=== PATIENT | female | born 1990 | race Caucasian/White ===

== ENCOUNTER 2018-03-29 23:33 | Inpatient (IN) | payer OTHER ==
[~2018-03-29] VITALS: Ht 165.1 cm; Wt 77.1 kg
[~2018-03-29 23:33] MED LIST: ACET325; CETI10; DEPO; FLUO10; GABA300; GABA400; HYDACE5 PO; HYDR1TAB94 PO; IBUP600; IBUP600 PO; IBUP800 PO; LORA1; LORA1 PO; MECL12.5; MECL25 PO; MEDR150I IM; MULVITMINE PO; ONDA4 PO; ONDA4ODT MM; OXYACE5T PO; OXYACE7.5T PO; OXYC5; PROM25; PROM25 PO; QUET25; RANI150; SENNP; [UNRECOGNIZED DRUG - MIXTURE]
[2018-03-30 01:11] LABS: BASOPHILS ABSOLUTE AUTO 0.03 K/mm3 (0.00-0.23); BASOPHILS PERCENT AUTO 0 % (0-2); EOSINOPHILS ABSOLUTE AUTO 0.06 K/mm3 (0.00-0.68); EOSINOPHILS PERCENT AUTO 1 % (0-6); Hematocrit 36.8 % (33.0-51.0); Hemoglobin 12.1 g/dL (11.5-16.0); IMMATURE GRAN ABSOLUTE AUTO 0.05 K/mm3 (0.00-0.10); IMMATURE GRAN PERCENT AUTO 1 % (0-1); LYMPHOCYTES ABSOLUTE AUTO 2.49 K/mm3 (0.84-5.20); LYMPHOCYTES PERCENT AUTO 30 % (21-46); MONOCYTES ABSOLUTE AUTO 0.74 K/mm3 (0.16-1.47); MONOCYTES PERCENT AUTO 9 % (4-13); Mean Corpuscular HGB 30.9 pg (26.0-34.0); Mean Corpuscular HGB Conc 32.9 g/dL (31.5-36.5); Mean Corpuscular Volume 94 fL (80-100); Mean Platelet Volume 12.2 fL (9.1-12.4); NEUTROPHILS ABSOLUTE AUTO 5.05 K/mm3 (1.96-9.15); NEUTROPHILS PERCENT AUTO 60 % (41-73); Platelet Count 141 K/mm3 (150-400); Red Blood Cell Count 3.91 M/mm3 (3.80-5.20); White Blood Cell Count 8.42 K/mm3 (4.00-11.30)
[2018-03-31 06:59] LABS: BASOPHILS ABSOLUTE AUTO 0.02 K/mm3 (0.00-0.23); BASOPHILS PERCENT AUTO 0 % (0-2); EOSINOPHILS ABSOLUTE AUTO 0.19 K/mm3 (0.00-0.68); EOSINOPHILS PERCENT AUTO 2 % (0-6); Hematocrit 29.3 % (33.0-51.0); Hemoglobin 9.5 g/dL (11.5-16.0); IMMATURE GRAN ABSOLUTE AUTO 0.08 K/mm3 (0.00-0.10); IMMATURE GRAN PERCENT AUTO 1 % (0-1); LYMPHOCYTES ABSOLUTE AUTO 2.56 K/mm3 (0.84-5.20); LYMPHOCYTES PERCENT AUTO 26 % (21-46); MONOCYTES ABSOLUTE AUTO 0.75 K/mm3 (0.16-1.47); MONOCYTES PERCENT AUTO 8 % (4-13); Mean Corpuscular HGB Conc 32.4 g/dL (31.5-36.5); Mean Corpuscular Volume 96 fL (80-100); Mean Platelet Volume 11.7 fL (9.1-12.4); NEUTROPHILS PERCENT AUTO 63 % (41-73); Platelet Count 109 K/mm3 (150-400); RDW Coefficient Variation 13.2 % (11.7-14.2); RDW Standard Deviation 45.6 fL (35.1-46.3); Red Blood Cell Count 3.06 M/mm3 (3.80-5.20)
[2018-03-31] MEDS ORDERED: IBUP800 PO (08:11)
[2018-03-31] MEDS ORDERED: Percocet 5-3251 EACH PO (08:12)
[2018-03-31] MEDS ORDERED: Verotin-Gr Cap1 EACH PO (08:12)
== END 2018-03-31 14:45 | disposition home or self-care (01) | DRG 775 ==
LOC: OBS 23:33 → BC 23:34 → OBS 03-30 00:46 → BC 03-30 00:49
PROVIDERS: Nurse Practitioner Obstetrics & Gynecology
PROC: 10E0XZZ Delivery of Products of Conception, External Approach (ICD-10-PCS; principal; 2018-03-30)
PROC: 3E0R3BZ Introduction of Anesthetic Agent into Spinal Canal, Percutaneous Approach (ICD-10-PCS; 2018-03-30)
DX: O80 Encounter for full-term uncomplicated delivery (principal); Z3A.39 39 weeks gestation of pregnancy; Z37.0 Single live birth; Z88.0 Allergy status to penicillin; Z91.011 Allergy to milk products
CPT/HCPCS: 36415; 59025; 85025; J1885; J2210; J2590; J3010; J7120

== ENCOUNTER 2018-05-28 09:18 | Day surgery (SDC) | payer OTHER ==
[~2018-05-28] VITALS: Ht 165.1 cm; Wt 64.1 kg
[~2018-05-28 09:18] MED LIST changes: +Percocet 5-3251 EACH PO; +Verotin-Gr Cap1 EACH PO
== END 2018-05-28 12:57 | disposition home or self-care (01) ==
LOC: ORSCSDS 09:18
PROVIDERS: Obstetrics & Gynecology
PROC: 0UT74ZZ Resection of Bilateral Fallopian Tubes, Percutaneous Endoscopic Approach (ICD-10-PCS; principal; 2018-05-28 10:30)
DX: Z30.2 Encounter for sterilization (principal); N83.8 Other noninflammatory disorders of ovary, fallopian tube and broad ligament; N80.3 Endometriosis of pelvic peritoneum; K66.0 Peritoneal adhesions (postprocedural) (postinfection)
CPT/HCPCS: 88302; J0690; J1100; J1885; J2250; J2405; J2710; J3010; J7120

== ENCOUNTER 2018-06-05 13:49 | Emergency (ER) | payer OTHER ==
[~2018-06-05] VITALS: Ht 165.1 cm; Wt 63.5 kg
[2018-06-05 15:20] LABS: BASOPHILS ABSOLUTE AUTO 0.04 K/mm3 (0.00-0.23); BASOPHILS PERCENT AUTO 0 % (0-2); EOSINOPHILS ABSOLUTE AUTO 0.32 K/mm3 (0.00-0.68); EOSINOPHILS PERCENT AUTO 3 % (0-6); Hematocrit 42.3 % (33.0-51.0); Hemoglobin 14.1 g/dL (11.5-16.0); IMMATURE GRAN ABSOLUTE AUTO 0.02 K/mm3 (0.00-0.10); IMMATURE GRAN PERCENT AUTO 0 % (0-1); LYMPHOCYTES ABSOLUTE AUTO 1.69 K/mm3 (0.84-5.20); LYMPHOCYTES PERCENT AUTO 18 % (21-46); MONOCYTES ABSOLUTE AUTO 0.54 K/mm3 (0.16-1.47); MONOCYTES PERCENT AUTO 6 % (4-13); Mean Corpuscular HGB 30.8 pg (26.0-34.0); Mean Corpuscular HGB Conc 33.3 g/dL (31.5-36.5); Mean Corpuscular Volume 92 fL (80-100); Mean Platelet Volume 11.4 fL (9.1-12.4); NEUTROPHILS PERCENT AUTO 72 % (41-73); Platelet Count 220 K/mm3 (150-400); RDW Coefficient Variation 12.8 % (11.7-14.2); RDW Standard Deviation 43.2 fL (35.1-46.3); Red Blood Cell Count 4.58 M/mm3 (3.80-5.20); White Blood Cell Count 9.31 K/mm3 (4.00-11.30)
[2018-06-05 15:29] LABS: Alanine Aminotransfer (ALT/SGP 31 U/L (12-78); Albumin, Blood 4.4 g/dL (3.4-5.0); Albumin/Globulin Ratio 1.2 (0.8-1.8); Alk Phos 88 U/L (50-136); Anion Gap 7 mmol/L (6-16); Aspartate Aminotrans (AST/SGOT 21 U/L (12-37); Bilirubin, Total 0.8 mg/dL (0.1-1.0); Blood Urea Nitrogen 19 mg/dL (8-24); Bun/Creatinine Ratio 23.6 (12.0-20.0); CO2, Blood 28 mmol/L (21-32); Calcium, Blood 9.3 mg/dL (8.5-10.1); Chloride, Blood 108 mmol/L (98-108); Creatinine, Blood 0.81 mg/dL (0.40-1.00); Globulin, Blood 3.7 g/dL (2.2-4.0); Glomerular Filtration Rate >60 (60-); Glucose, Blood 83 mg/dL (70-99); Potassium, Blood 3.7 mmol/L (3.5-5.5); Sodium, Blood 143 mmol/L (136-145); Total Protein, Blood 8.1 g/dL (6.4-8.2)
[2018-06-05] MEDS ORDERED: Kristalose20 GM PO (16:41)
== END 2018-06-05 17:26 | disposition home or self-care (01) ==
LOC: ER 13:49
PROVIDERS: Nurse Practitioner Family
DX: K59.00 Constipation, unspecified (principal); N99.842 Postprocedural seroma of a genitourinary system organ or structure following a genitourinary system procedure
CPT/HCPCS: 36415; 74018; 74176; 80053; 85025; 96374; 96375; 96376; 99284-25; J2405; J3010

== ENCOUNTER 2018-06-14 00:07 | Inpatient (IN) | payer OTHER ==
[~2018-06-14] VITALS: Ht 165.1 cm; Wt 63.5 kg
[~2018-06-14 00:07] MED LIST changes: +Kristalose20 GM PO
[2018-06-14] MEDS ORDERED: SENN187 PO (00:56)
[2018-06-14 01:40] LABS: BASOPHILS ABSOLUTE AUTO 0.06 K/mm3 (0.00-0.23); BASOPHILS PERCENT AUTO 1 % (0-2); EOSINOPHILS ABSOLUTE AUTO 0.28 K/mm3 (0.00-0.68); EOSINOPHILS PERCENT AUTO 3 % (0-6); Hematocrit 42.1 % (33.0-51.0); Hemoglobin 14.1 g/dL (11.5-16.0); IMMATURE GRAN ABSOLUTE AUTO 0.02 K/mm3 (0.00-0.10); IMMATURE GRAN PERCENT AUTO 0 % (0-1); LYMPHOCYTES ABSOLUTE AUTO 1.63 K/mm3 (0.84-5.20); LYMPHOCYTES PERCENT AUTO 15 % (21-46); MONOCYTES ABSOLUTE AUTO 0.74 K/mm3 (0.16-1.47); MONOCYTES PERCENT AUTO 7 % (4-13); Mean Corpuscular HGB 30.3 pg (26.0-34.0); Mean Corpuscular HGB Conc 33.5 g/dL (31.5-36.5); Mean Corpuscular Volume 91 fL (80-100); NEUTROPHILS ABSOLUTE AUTO 8.28 K/mm3 (1.96-9.15); NEUTROPHILS PERCENT AUTO 75 % (41-73); Platelet Count 232 K/mm3 (150-400); RDW Coefficient Variation 12.9 % (11.7-14.2); RDW Standard Deviation 41.9 fL (35.1-46.3); Red Blood Cell Count 4.65 M/mm3 (3.80-5.20); White Blood Cell Count 11.01 K/mm3 (4.00-11.30)
[2018-06-14 02:01] LABS: Alanine Aminotransfer (ALT/SGP 32 U/L (12-78); Albumin, Blood 4.4 g/dL (3.4-5.0); Albumin/Globulin Ratio 1.3 (0.8-1.8); Alk Phos 90 U/L (50-136); Anion Gap 9 mmol/L (6-16); Aspartate Aminotrans (AST/SGOT 21 U/L (12-37); Bilirubin, Total 0.7 mg/dL (0.1-1.0); Blood Urea Nitrogen 15 mg/dL (8-24); Bun/Creatinine Ratio 20.5 (12.0-20.0); CO2, Blood 28 mmol/L (21-32); Calcium, Blood 9.4 mg/dL (8.5-10.1); Chloride, Blood 107 mmol/L (98-108); Creatinine, Blood 0.73 mg/dL (0.40-1.00); Globulin, Blood 3.3 g/dL (2.2-4.0); Glomerular Filtration Rate >60 (60-); Glucose, Blood 88 mg/dL (70-99); Potassium, Blood 3.3 mmol/L (3.5-5.5); Sodium, Blood 144 mmol/L (136-145); Total Protein, Blood 7.7 g/dL (6.4-8.2)
[2018-06-14 02:46] LABS: Source, Urine Clean Catch
[2018-06-14 02:48] LABS: Bilirubin, Urine Neg (Neg); Blood, Urine 1+ (Neg); Glucose Qualitative, Urine Neg (Neg); Ketones, Urine 3+ (Neg); Leukocyte Esterase, Urine Neg (Neg); Nitrite, Urine Neg (Neg); Protein, Urine 1+ (Neg); Specific Gravity, Urine 1.015 (1.003-1.022); Urobilinogen, Urine NORM (Normal)
[2018-06-14 02:50] LABS: Appearance, Urine Clear (Clear); Color, Urine Yellow (P-Yellow)
[2018-06-14 02:53] LABS: Red Blood Cells, Urine 0-2 /hpf (0-2); Squamous Epithelial Cells Few /hpf (Few)
[2018-06-14 02:54] LABS: Bacteria Mod /hpf
[2018-06-15 05:41] LABS: BASOPHILS ABSOLUTE AUTO 0.02 K/mm3 (0.00-0.23); BASOPHILS PERCENT AUTO 0 % (0-2); EOSINOPHILS ABSOLUTE AUTO 0.01 K/mm3 (0.00-0.68); EOSINOPHILS PERCENT AUTO 0 % (0-6); Hematocrit 37.9 % (33.0-51.0); Hemoglobin 12.3 g/dL (11.5-16.0); IMMATURE GRAN ABSOLUTE AUTO 0.02 K/mm3 (0.00-0.10); IMMATURE GRAN PERCENT AUTO 0 % (0-1); LYMPHOCYTES ABSOLUTE AUTO 1.49 K/mm3 (0.84-5.20); LYMPHOCYTES PERCENT AUTO 17 % (21-46); MONOCYTES ABSOLUTE AUTO 1.12 K/mm3 (0.16-1.47); MONOCYTES PERCENT AUTO 13 % (4-13); Mean Corpuscular HGB 29.4 pg (26.0-34.0); Mean Corpuscular HGB Conc 32.5 g/dL (31.5-36.5); Mean Corpuscular Volume 91 fL (80-100); Mean Platelet Volume 11.4 fL (9.1-12.4); NEUTROPHILS ABSOLUTE AUTO 5.96 K/mm3 (1.96-9.15); NEUTROPHILS PERCENT AUTO 69 % (41-73); Platelet Count 229 K/mm3 (150-400); RDW Coefficient Variation 13.1 % (11.7-14.2); RDW Standard Deviation 42.7 fL (35.1-46.3); Red Blood Cell Count 4.19 M/mm3 (3.80-5.20); White Blood Cell Count 8.62 K/mm3 (4.00-11.30)
[2018-06-15 05:53] LABS: Anion Gap 9 mmol/L (6-16); Blood Urea Nitrogen 9 mg/dL (8-24); Bun/Creatinine Ratio 13.1 (12.0-20.0); CO2, Blood 25 mmol/L (21-32); Calcium, Blood 8.7 mg/dL (8.5-10.1); Chloride, Blood 107 mmol/L (98-108); Creatinine, Blood 0.69 mg/dL (0.40-1.00); Glomerular Filtration Rate >60 (60-); Glucose, Blood 102 mg/dL (70-99); Sodium, Blood 141 mmol/L (136-145)
[2018-06-19 05:08] LABS: BASOPHILS ABSOLUTE AUTO 0.02 K/mm3 (0.00-0.23); BASOPHILS PERCENT AUTO 0 % (0-2); EOSINOPHILS ABSOLUTE AUTO 0.32 K/mm3 (0.00-0.68); EOSINOPHILS PERCENT AUTO 4 % (0-6); Hematocrit 29.8 % (33.0-51.0); IMMATURE GRAN ABSOLUTE AUTO 0.03 K/mm3 (0.00-0.10); IMMATURE GRAN PERCENT AUTO 0 % (0-1); LYMPHOCYTES ABSOLUTE AUTO 1.13 K/mm3 (0.84-5.20); LYMPHOCYTES PERCENT AUTO 13 % (21-46); MONOCYTES ABSOLUTE AUTO 0.89 K/mm3 (0.16-1.47); MONOCYTES PERCENT AUTO 10 % (4-13); Mean Corpuscular HGB 30.9 pg (26.0-34.0); Mean Corpuscular HGB Conc 33.6 g/dL (31.5-36.5); Mean Corpuscular Volume 92 fL (80-100); Mean Platelet Volume 10.5 fL (9.1-12.4); NEUTROPHILS ABSOLUTE AUTO 6.14 K/mm3 (1.96-9.15); NEUTROPHILS PERCENT AUTO 72 % (41-73); Platelet Count 193 K/mm3 (150-400); RDW Coefficient Variation 12.6 % (11.7-14.2); RDW Standard Deviation 42.7 fL (35.1-46.3); Red Blood Cell Count 3.24 M/mm3 (3.80-5.20); White Blood Cell Count 8.53 K/mm3 (4.00-11.30)
[2018-06-19 05:24] LABS: Anion Gap 5 mmol/L (6-16); Blood Urea Nitrogen 5 mg/dL (8-24); Bun/Creatinine Ratio 8.4 (12.0-20.0); CO2, Blood 27 mmol/L (21-32); Calcium, Blood 8.5 mg/dL (8.5-10.1); Chloride, Blood 110 mmol/L (98-108); Creatinine, Blood 0.59 mg/dL (0.40-1.00); Glomerular Filtration Rate >60 (60-); Glucose, Blood 96 mg/dL (70-99); Magnesium, Blood 1.7 mg/dL (1.6-2.4); Phosphorus, Blood 3.5 mg/dL (2.5-4.9); Potassium, Blood 3.7 mmol/L (3.5-5.5); Sodium, Blood 142 mmol/L (136-145)
[2018-06-22] MEDS ORDERED: OXYC5 PO (10:40)
== END 2018-06-22 13:03 | disposition home or self-care (01) | DRG 331 ==
LOC: ER 00:07 → SURS 03:58 → ERHOLD 03:58 → MEDS 03:58 → SURS 18:50
PROVIDERS: Emergency Medicine; Surgery
PROC: 0DN80ZZ Release Small Intestine, Open Approach (ICD-10-PCS; 2018-06-14)
PROC: 0DT80ZZ Resection of Small Intestine, Open Approach (ICD-10-PCS; principal; 2018-06-14 14:00)
DX: K56.51 Intestinal adhesions [bands], with partial obstruction (principal); K21.9 Gastro-esophageal reflux disease without esophagitis; E87.6 Hypokalemia
CPT/HCPCS: 36415; 51702; 74177; 74250; 80048; 80053; 81001; 83690; 83735; 84100; 85025; 87086; 88307; 88342; 96374; 96375; 96376; 99285-25; C1751; J1100; J1170; J1885; J2250; J2405; J2765; J3010; J7030; J7120; Q0163; Q9967

== ENCOUNTER 2022-01-26 08:31 | Day surgery (SDC) | payer OTHER ==
[~2022-01-26] VITALS: Ht 165.1 cm; Wt 64.6 kg
[~2022-01-26 08:31] MED LIST changes: +OXYC5 PO; +SENN187 PO
[2022-01-26] MEDS ORDERED: PROG100 (08:55)
[2022-01-26] MEDS ORDERED: ALDACTONE100 MG PO (08:55)
--- NOTE | 2022-01-26 08:57 | NUR ---
Ambulatory in Day Surgery History, Chart, Medications and Allergies reviewed before start of procedure. Lungs clear T/O to Auscultation. Patient confirms NPO status and agrees with scheduled surgery. Pre-Op teaching done. Pt verbalizes understanding. Patient States Post-Procedure ride home has been arranged.
== END 2022-01-26 23:15 | disposition home or self-care (01) ==
LOC: ORSCMMR 08:31 → ORD 10:00 → ORSCMMR 10:00 → ORD 02-10 07:30
PROVIDERS: Obstetrics & Gynecology
PROC: 0DNW4ZZ Release Peritoneum, Percutaneous Endoscopic Approach (ICD-10-PCS; principal; 2022-01-26 10:00)
PROC: 0TBB4ZZ Excision of Bladder, Percutaneous Endoscopic Approach (ICD-10-PCS; principal; 2022-01-26 10:00)
PROC: 8E0W4CZ Robotic Assisted Procedure of Trunk Region, Percutaneous Endoscopic Approach (ICD-10-PCS; principal; 2022-01-26 10:00)
DX: N83.202 Unspecified ovarian cyst, left side (principal); N83.201 Unspecified ovarian cyst, right side; R10.2 Pelvic and perineal pain; K66.0 Peritoneal adhesions (postprocedural) (postinfection); N80.3 Endometriosis of pelvic peritoneum; Z79.899 Other long term (current) drug therapy
CPT/HCPCS: 58662; 49329; S2900; 88305; A9270; J0690; J1100; J1885; J2270; J2405; J2704; J2710; J3010; J7120

== ENCOUNTER 2022-11-03 09:45 | Day surgery (SDC) | payer OTHER ==
[2022-10-31 17:33] LABS: BASOPHILS ABSOLUTE AUTO 0.06 K/mm3 (0.00-0.23); BASOPHILS PERCENT AUTO 1 % (0-2); EOSINOPHILS ABSOLUTE AUTO 0.34 K/mm3 (0.00-0.68); EOSINOPHILS PERCENT AUTO 5 % (0-6); Hematocrit 41.9 % (33.0-51.0); Hemoglobin 14.4 g/dL (11.5-16.0); IMMATURE GRAN ABSOLUTE AUTO 0.02 K/mm3 (0.00-0.10); IMMATURE GRAN PERCENT AUTO 0 % (0-1); LYMPHOCYTES ABSOLUTE AUTO 2.27 K/mm3 (0.84-5.20); LYMPHOCYTES PERCENT AUTO 30 % (21-46); MONOCYTES ABSOLUTE AUTO 0.58 K/mm3 (0.16-1.47); MONOCYTES PERCENT AUTO 8 % (4-13); Mean Corpuscular HGB 32.5 pg (26.0-34.0); Mean Corpuscular HGB Conc 34.4 g/dL (31.5-36.5); Mean Corpuscular Volume 95 fL (80-100); Mean Platelet Volume 11.8 fL (9.1-12.4); NEUTROPHILS ABSOLUTE AUTO 4.31 K/mm3 (1.96-9.15); NEUTROPHILS PERCENT AUTO 57 % (41-73); Platelet Count 230 K/mm3 (150-400); RDW Coefficient Variation 11.7 % (11.7-14.2); RDW Standard Deviation 40.5 fL (35.1-46.3); Red Blood Cell Count 4.43 M/mm3 (3.80-5.20); White Blood Cell Count 7.58 K/mm3 (4.00-11.30)
[~2022-11-03] VITALS: Ht 165.1 cm; Wt 63.5 kg
[~2022-11-03 09:45] MED LIST changes: +ALDACTONE100 MG PO; +PROG100
--- NOTE | 2022-11-03 10:32 | NUR ---
Ambulatory in Day Surgery. History, Chart, Medications and Allergies reviewed before start of procedure.Lungs clear T/O to Auscultation. Patient confirms NPO status and agrees with scheduled surgery. Pre-Op teaching done. Pt verbalizes understanding.
[2022-11-03] MEDS ORDERED: PROP10 PO (10:35)
[2022-11-03] MEDS ORDERED: LORA.5 PO (10:36)
[2022-11-03] MEDS ORDERED: VILAZODONE HCL20 MG PO (10:36)
--- NOTE | 2022-11-03 18:34 | NUR ---
1750 TO ROOM FROM PACU ACCOMPANIED BY FAMILY. LAP SITES X4 CLEAN, DRY AND INTACT. KAREY PAD IN PLACE WITHOUT DRAINAGE. PT REPORTS CRAMPING ABD PAIN. PT REPORTS PREVIOUS INJURY TO RIGHT ARM WHICH CAUSES DECREASED SENSATION, FINGERS CONTRACTED TO RIGHT HAND WHICH PT STATES IS HER NORMAL
--- NOTE | 2022-11-03 18:36 | NUR ---
PT REPORTS PAIN IS CURRENTLY 6/10 WHICH IS ACCEPTABLE TO HER. PT DENIES NAUSEA, NO DRAINAGE ON KAREY PAD. ABD INCISIONS WITHOUT DRAINAGE
--- NOTE | 2022-11-04 03:47 | NUR ---
PABLO RASHEED CALL PLACED TO DR BALLESTEROS FOR THIS PT DUE TO THE PATIENT REPORTING PAIN BEING UNCONTROLLED WITH PRN MEDICATION. INSTRUCTED TO GIVE 500 ML BOLUS, I PLAN TO USE BAG OF LR THAT IS HANGING, AND 6.25 MG OF PHENERGEN. PATIENT INFORMED OF THIS PLAN AND IS AGREEABLE.
--- NOTE | 2022-11-04 04:16 | NUR ---
POD1 FOR A LAP HYSTER. X4 LAP SITES ARE C/D/I. PT DENIES BLEEDING T/O THE NIGHT. BONE REMAINS IN PLACE. VSS, BP NOTED TO BE SOFT, SEE PREVIOUS NOTE FOR FLUID BOLUS. PAIN HAS BEEN DIFFICULT TO CONTROL T/O THE NIGHT, MEDICATING WITH PRN'S REGULARLY AND UTILIZING WARM BLANKETS T/O THE NIGHT. PT REPOSITIONING SELF FOR COMFORT. SEE PREVIOUS NOTE FOR PAIN MANAGEMENT FROM DR BALLESTEROS. PT WAS NAUSEOUS AT THE BEGINNING OF SHIFT, MEDICATED FOR THIS. SINCE THEN, PT HAS HAD NO NAUSEA AND HAS TOLLERATED PO INTAKE WELL. PT AMBULATED TO THE BATHROOM A SBA D/T IV POLE. PLAN FOR PT TO D/C HOME TODAY WITH FAMILY. THE PATIENT IS CURRENTLY TRYING TO FALL ASLEEP, CALL LIGHT IN REACH.
[2022-11-04 04:58] LABS: BASOPHILS ABSOLUTE AUTO 0.01 K/mm3 (0.00-0.23); BASOPHILS PERCENT AUTO 0 % (0-2); EOSINOPHILS ABSOLUTE AUTO 0.01 K/mm3 (0.00-0.68); EOSINOPHILS PERCENT AUTO 0 % (0-6); Hemoglobin 11.9 g/dL (11.5-16.0); IMMATURE GRAN ABSOLUTE AUTO 0.04 K/mm3 (0.00-0.10); IMMATURE GRAN PERCENT AUTO 0 % (0-1); LYMPHOCYTES ABSOLUTE AUTO 1.66 K/mm3 (0.84-5.20); LYMPHOCYTES PERCENT AUTO 15 % (21-46); MONOCYTES ABSOLUTE AUTO 1.06 K/mm3 (0.16-1.47); MONOCYTES PERCENT AUTO 10 % (4-13); Mean Corpuscular HGB 32.7 pg (26.0-34.0); Mean Corpuscular Volume 96 fL (80-100); Mean Platelet Volume 10.9 fL (9.1-12.4); NEUTROPHILS ABSOLUTE AUTO 8.05 K/mm3 (1.96-9.15); NEUTROPHILS PERCENT AUTO 74 % (41-73); Platelet Count 189 K/mm3 (150-400); RDW Coefficient Variation 11.5 % (11.7-14.2); RDW Standard Deviation 40.9 fL (35.1-46.3); Red Blood Cell Count 3.64 M/mm3 (3.80-5.20); White Blood Cell Count 10.83 K/mm3 (4.00-11.30)
[2022-11-04] MEDS ORDERED: ESTR2 PO (13:42)
[2022-11-04] MEDS ORDERED: HYDMOR2 PO (13:43)
[2022-11-04] MEDS ORDERED: IBUP400 PO (13:44)
[2022-11-04] MEDS ORDERED: PROM25 PO (13:45)
[2022-11-04] MEDS ORDERED: SIME80CH PO (13:46)
--- NOTE | 2022-11-04 16:56 | NUR ---
DISCHARGE TEACHING GIVEN TO PATIENT AND HER . ABD BINDER IN PLACE . PT DENIES NAUSEA, REPORTS PAIN IS ADEQUATELY CONTROLLED. AMBULATING IN ROOM AND VOIDING CLEAR YELLOW URINE. PT REPORTS SCANT PINK VAGINAL DRAINAGE ON TISSUE AFTER TOILETING. TRUONG REGULAR DIET. ABD INCISIONS INTACT AND WITHOUT DRAINAGE. PT AND HER IN AGREEMENT WITH PLAN TO DISCHARGE HOME. PT HAS ALL PRESCRIPTIONS FILLED AND AT HOME
--- NOTE | 2022-11-04 17:24 | NUR ---
discharged to home with spouse
== END 2022-11-04 17:24 | disposition home or self-care (01) ==
LOC: ORSCMMR 09:45 → ORD 11:15 → SURS 17:50 → ORSCMMR 11-04 17:24
PROVIDERS: Obstetrics & Gynecology
PROC: 0UT94ZZ Resection of Uterus, Percutaneous Endoscopic Approach (ICD-10-PCS; principal; 2022-11-03 11:15)
PROC: 0UT24ZZ Resection of Bilateral Ovaries, Percutaneous Endoscopic Approach (ICD-10-PCS; principal; 2022-11-03 11:15)
DX: N92.1 Excessive and frequent menstruation with irregular cycle (principal); N80.9 Endometriosis, unspecified; N94.6 Dysmenorrhea, unspecified; N94.10 Unspecified dyspareunia; R10.2 Pelvic and perineal pain; N83.201 Unspecified ovarian cyst, right side; F41.9 Anxiety disorder, unspecified; F32.A Depression, unspecified; K21.9 Gastro-esophageal reflux disease without esophagitis; Z79.899 Other long term (current) drug therapy
CPT/HCPCS: 58571; S2900; 36415; 85025; 86850; 86900; 86901; 88305; 88307; A9270; J0690; J1100; J1170; J1885; J2250; J2405; J2550; J2704; J3010; J7120

== ENCOUNTER 2022-12-02 14:40 | Emergency (ER) | payer OTHER ==
[~2022-12-02] VITALS: Ht 170.2 cm; Wt 63.5 kg
[~2022-12-02 14:40] MED LIST changes: +ESTR2 PO; +HYDMOR2 PO; +IBUP400 PO; +LORA.5 PO; +PROP10 PO; +SIME80CH PO; +VILAZODONE HCL20 MG PO
== END 2022-12-02 17:42 | disposition home or self-care (01) ==
LOC: ER 14:40
DX: N99.820 Postprocedural hemorrhage of a genitourinary system organ or structure following a genitourinary system procedure (principal); J45.909 Unspecified asthma, uncomplicated; Z88.0 Allergy status to penicillin; Z91.048 Other nonmedicinal substance allergy status; Z79.899 Other long term (current) drug therapy; Z90.710 Acquired absence of both cervix and uterus
CPT/HCPCS: 99283